=== PATIENT | male | born 1950 | race Caucasian/White ===

== ENCOUNTER 2018-10-23 10:40 | Emergency (ER) | payer BC, OTHER ==
--- NOTE | 2018-10-23 12:25 | UC ---
Minor Trauma HPI - HPI Summary HPI Summary: patient was hit in the right cheek (tmj) area last night while playing basketball. hurts to open and close jaw----no dental injury - History of Current Complaint Chief Complaint: UCGeneralIllness Stated Complaint: RIGHT CHEEK INJURY Time Seen by Provider: 10/23/18 11:26 Hx Obtained From: Patient Onset/Duration: Sudden Onset, Lasting Days - 1, Still Present Onset Of Pain: Immediate Pain Intensity: 6 Pain Scale Used: 0-10 Numeric Mechanism Of Injury: Direct Blow Aggravating Factor(s): Movement Alleviating Factor(s): Nothing Associated Signs And Symptoms: Positive: Ecchymosis - Allergies/Home Medications Allergies/Adverse Reactions: Allergies Allergy/AdvReac Type Severity Reaction Status Date / Time No Known Allergies Allergy Verified 10/23/18 10:58 Home Medications: Home Medications Gabapentin CAP(*) [Neurontin 300 CAP(*)] 1 cap BID 10/23/18 [History Confirmed 10/23/18] Meloxicam 1 tab DAILY PRN 10/23/18 [History Confirmed 10/23/18] PMH/Surg Hx/FS Hx/Imm Hx Previously Healthy: No - back surgery last year Endocrine History: Dyslipidemia GI/ History: Other Other GI/ History: bph - Surgical History Surgical History: Yes Surgery Procedure, Year, and Place: back, R knee - Family History Known Family History: Positive: None - Social History Occupation: Employed Full-time Lives: With Family Alcohol Use: Occasionally Substance Use Type: None Smoking Status (MU): Never Smoked Tobacco - Immunization History Most Recent Tetanus Shot: UTD Review of Systems All Other Systems Reviewed And Are Negative: Yes Constitutional: Positive: Negative Skin: Positive: Negative Eyes: Positive: Negative ENT: Positive: Negative Respiratory: Positive: Negative Cardiovascular: Positive: Negative Gastrointestinal: Positive: Negative Genitourinary: Positive: Negative Motor: Positive: Negative Neurovascular: Positive: Negative Musculoskeletal: Positive: Arthralgia - right tmj Neurological: Positive: Negative Psychological: Positive: Negative Is Patient Immunocompromised?: No Physical Exam Triage Information Reviewed: Yes Appearance: Well-Appearing, No Pain Distress, Well-Nourished Vital Signs: Initial Vital Signs Temp 98.1 F 10/23/18 10:59 Pulse 78 10/23/18 10:59 Resp 16 10/23/18 10:59 BP 141/94 10/23/18 10:59 Pulse Ox 100 10/23/18 10:59 Vital Signs Reviewed: Yes Eye Exam: Normal Eyes: Positive: Conjunctiva Clear ENT Exam: Normal ENT: Positive: Normal ENT inspection, Hearing grossly normal, Pharynx normal, Uvula midline. Negative: Nasal congestion, Trismus, Muffled voice, Hoarse voice , Dental tenderness, Sinus tenderness Dental Exam: Normal Neck exam: Normal Neck: Positive: Supple, Nontender, No Lymphadenopathy Respiratory Exam: Normal Respiratory: Positive: Chest non-tender, No respiratory distress, No accessory muscle use Cardiovascular Exam: Normal Cardiovascular: Positive: RRR, Pulses Normal, Brisk Capillary Refill Musculoskeletal Exam: Normal Musculoskeletal: Positive: Strength Intact, No Edema, ROM Limited @ - jaw limited Neurological Exam: Normal Neurological: Positive: Alert, Muscle Tone Normal Psychological Exam: Normal Skin Exam: Normal Diagnostics - Laboratory Diagnostic Studies Completed/Ordered: x-ray negative, CT nondisplaced fracture right mandibular coronoid process adn ramas Minor Trauma Course/Dx - Course Course Of Treatment: pat d/c to home with dx of contusion pending CT result non displaced fracture right mandibular coronoid process and ramus----patient called and dx and treament planned updates for follow up with Dr. Fenton (after consultation) planned for Thursday at 10 am[place] [place] - Differential Dx/Diagnosis Provider Diagnosis: Mandibular body fracture Discharge - Sign-Out/Discharge Documenting (check all that apply): Patient Departure All imaging exams completed and their final reports reviewed: Yes - Discharge Plan Condition: Stable Disposition: HOME Patient Education Materials: Ibuprofen (By mouth), Contusion in Adults (ED), Hypertension (ED), Ice Pack Application (ED) Referrals: Denys العراقي MD [Primary Care Provider] - 2 Weeks - Billing Disposition and Condition Condition: STABLE Disposition: Home - Attestation Statements Provider Attestation: I was available for consult. This patient was seen by the [facility]. The patient was not presented to, seen by, or examined by me. EK
[2018-10-23 14:20] VITALS: BP 134/86
== END 2018-10-23 14:20 | disposition home or self-care (01) ==
LOC: UCCORT 10:40
DX: S02.631A Fracture of coronoid process of right mandible, initial encounter for closed fracture (principal); S06.9X0A Unspecified intracranial injury without loss of consciousness, initial encounter; S02.641A Fracture of ramus of right mandible, initial encounter for closed fracture; W21.05XA Struck by basketball, initial encounter; Y93.67 Activity, basketball; Y92.9 Unspecified place or not applicable
CPT/HCPCS: 70330; 70486; 99212; G0463